=== PATIENT | female | born 1970 | race Two or more races ===

== ENCOUNTER → 2024-10-27 | Outpatient (CLI) | payer BC, SELFPAY ==
--- NOTE | 2024-10-27 | XR_ITS ---
Examination: Wrist, left 3 views Technique: Wrist AP, oblique, lateral 3 views Date and time of exam: October 27, 2024 1312 hours INDICATIONS: Onset wrist pain beginning 4 days ago. FINDINGS: Impacted fracture, healed distal radial metaphysis Severe osteopenia No definite new fracture IMPRESSION: Severe osteopenia Healed fracture distal radial metaphysis
== END | disposition home or self-care (01) ==
PROVIDERS: PCP Nurse Practitioner Primary Care; Referring Provider Surgery; Visit Provider Surgery
DX: M85.88 Other specified disorders of bone density and structure, other site (principal)
CPT/HCPCS: 73110